=== PATIENT | male | born 1950 | race Caucasian/White ===

== ENCOUNTER 2018-06-14 09:46 | Day surgery (SDC) | payer OTHER, SELFPAY ==
[2018-06-14 10:15] VITALS: BP 137/79; PULSE 50; RESP 16; TEMP 36.3; O2SAT 100; BMI 23.3
[2018-06-14] MEDS: SODIUM CHLORIDE 0.9% 1,000 ML 200 ML IV (10:55)
[2018-06-14] MEDS: fentaNYL 250 MCG/5 ML INJ IV (11:08)
[2018-06-14] MEDS: MIDAZOLAM 5 MG/5 ML VIAL IV (11:09)
--- NOTE | 2018-06-14 11:15 | PM.HP.1 ---
History of Present Illness Date Patient Seen: 06/14/18 Time Patient Seen: 11:16 Chief complaint: [address] SCREENING COLONOSCOPY Narrative: Pleasant and healthy 67-year-old gentleman here for screening colonoscopy. He denies any problems or symptoms related to the function of his GI tract. His last colonoscopy was somewhere between 5 and 10 years ago and he recalls it has been normal. Patient History Surgical History Status post appendectomy Family & Social History Family History: Reviewed 06/14/18 by Daphney Villalobos MD Social History: household members spouse Tobacco & Substance use: Smoking Status Never smoker Meds Home Medications Medication Instructions Recorded Confirmed Type latanoprost [Xalatan] 1 drp OPHTH HS #0 05/05/11 04/19/18 History meloxicam [Mobic] 7.5 mg PO BIDP PRN #30 tab 05/15/17 04/19/18 Rx diclofenac sodium 75 mg PO BID #60 ect 06/20/17 04/19/18 Rx doxazosin [Cardura] 4 mg PO QDAY #180 tab 06/29/17 04/19/18 Rx clobetasol-emollient 1 juanjo TOPICAL BID #60 gm 11/24/17 04/19/18 Rx tadalafil [Cialis] 20 mg PO QDAY #30 tab 12/20/17 04/19/18 Rx zolpidem 5 mg tablet 5 mg PO HSP #30 tab 05/07/18 Rx Allergies Allergy/AdvReac Type Severity Reaction Status Date / Time No Known Drug Allergies Allergy Verified 04/19/18 13:50 Review of Systems Review of Systems All systems reviewed & are unremarkable except as noted in HPI and below Exam Vital Signs (past 8 hours): - 06/14/18 10:15 Temperature 97.3 F L Pulse Rate 50 L Respiratory Rate 16 Blood Pressure 137/79 H Pulse Oximetry 100 Oxygen Delivery Method Room Air Narrative Exam Narrative: HEENT: Normocephalic and atraumatic, pupils equal round reactive to light accommodation with anicteric sclera Lungs: Clear to auscultation bilaterally Heart: Regular rate and rhythm without murmur rub or gallop Abdomen: Soft, nontender, active bowel sounds Extremities: Warm and well-perfused without edema Assessment & Plan Plan: Assessment/Plan Narrative: Screening colonoscopy in the setting where pleasant and healthy gentleman. We discussed the risks and benefits of the procedure the patient expressed a desire to complete it today
[2018-06-14 11:18] VITALS: BP 96/62; PULSE 55; RESP 10; TEMP 36.8; O2SAT 95
--- NOTE | 2018-06-14 11:20 | PM.OP.1 ---
Operative Date/Time/Diagnoses Date of procedure: 06/14/18 Time of procedure: 11:20 Pre-op diagnosis: Screening Post-op diagnosis: same Procedure & Clinicians Procedure: Colonoscopy to the cecum Same procedure as scheduled: Yes Indications: Last colonoscopy 5-10 years ago Surgeon: Daphney Villalobos Click Yes if Unassisted: Yes Anesthesia Type: Sedation (Versed 8 mg; fentanyl 200 mcg) Operative Notes Findings: 1. Excellent prep 2. No polyps or mass lesions or AV malformations 3. Significant diverticulosis limited the sigmoid colon. Primarily large pockets with out evidence of false passages 4. Grade 1 internal hemorrhoids 5. Essentially normal colonoscopy for age Procedure in detail: After obtaining informed consent, the patient was brought to the GI suite and placed in the left lateral decubitus position on the examination table. After placement of appropriate monitors, the patient was given incremental doses of Versed and Fentanyl until an appropriate level of sedation was achieved. A time out was held per SCOAP protocol. A digital rectal examination was performed and did not reveal any masses or obstructing lesions. The colonoscope was gently passed into the patient's anus and the entire colon navigated to the level of the cecum with minimal difficulty. Once in the cecum, the scope was withdrawn being sure to go before and beyond all mucosal folds and prominences and get an excellent examination. The findings are noted above. At the level of the rectal vault, the scope was retroflexed and the internal anal canal was examined. The scope was straightened and air aspirated from the colon. The instrument was removed from the patient's body and the procedure was concluded. The patient was allowed to awaken from sedation without difficulty and taken to the post-anesthesia care unit in good condition. Total sedation time 23 min Total withdrawal time 11 min Complications: none Condition: stable Disposition: PACU Plan for aftercare: 1. Discharge to home 2. Plan for next colonoscopy in 10 years or as clinically indicated
[2018-06-14 11:23] VITALS: BP 102/70; PULSE 69; RESP 16; O2SAT 94
[2018-06-14 11:30] VITALS: BP 116/68; PULSE 57; RESP 16; TEMP 37.2; O2SAT 98
== END 2018-06-14 12:00 | disposition home or self-care (01) ==
PROVIDERS: PCP Family Medicine; Visit Provider Surgery
PROC: 0DJD8ZZ Inspection of Lower Intestinal Tract, Via Natural or Artificial Opening Endoscopic (ICD-10-PCS; CPT 45378; principal; 2018-06-14 10:45)
DX: Z12.11 Encounter for screening for malignant neoplasm of colon (principal); K57.30 Diverticulosis of large intestine without perforation or abscess without bleeding; K64.0 First degree hemorrhoids
CPT/HCPCS: G0121; 99152; 99153; J2250; J3010

== ENCOUNTER → 2018-11-08 08:09 | Outpatient (CLI) | payer OTHER, SELFPAY ==
[2018-11-08 10:11] LABS: Add Manual Diff / Slide Review NO; Basophils Absolute Auto 0 /uL (0-100); Basophils Percent Auto 0.4 % (0-2); Eosinophils Absolute Auto 0 /uL (0-450); Eosinophils Percent Auto 0.8 % (2-4); Hematocrit 38.6 % (41-53); Hemoglobin 12.9 g/dL (13.5-17.5); Lymphocytes Absolute Auto 1700 /uL (1100-4500); Lymphocytes Percent Auto 29.2 % (25-40); Mean Corpuscular HGB Conc 33.5 % (30-36); Mean Corpuscular Hemoglobin 32.7 PG (26-34); Mean Corpuscular Volume 97.6 fL (80-100); Monocytes Absolute Auto 500 /uL (0-900); Monocytes Percent Auto 9.3 % (3-14); Neutrophils Absolute Auto 3400 /uL (1500-7000); Neutrophils Percent Auto 60.3 % (50-75); Platelet Count 300 X10^3/uL (150-400); Red Blood Cell Count 3.95 X10^6/uL (4.5-5.9); Red Cell Distribution Width 13.6 % (11.6-14.8); White Blood Cell Count 5.7 X10^3/uL (4.5-11.0)
[2018-11-08 10:23] LABS: Alanine Aminotransferase 34 IU/L (21-72); Albumin 4.1 g/dL (3.5-5.0); Albumin Globulin Ratio 1.6 (1.0-2.8); Alkaline Phosphatase 45 U/L (38-126); Aspartate Aminotransferase 26 IU/L (17-59); BUN Creatinine Ratio 23.8 (6-22); Bilirubin Total 0.7 mg/dL (0.2-1.3); Blood Urea Nitrogen 19 mg/dL (9-20); Calcium 9.1 mg/dL (8.4-10.2); Carbon Dioxide 27 mmol/L (22-32); Chloride 104 mmol/L (98-107); Cholesterol 161 mg/dL (140-199); Estimated Glomerular Filt Rate > 60.0 mL/min (>60); Globulin 2.6 g/dL (1.7-4.1); Glucose 95 mg/dL (80-110); HDL Cholesterol 61 mg/dL (40-60); HEMOLYSIS < 15 (0-50); LDL Cholesterol Calculated 82 mg/dL (<100); Potassium 4.4 mmol/L (3.4-5.1); Sodium 139 mmol/L (137-145); Total Protein 6.7 g/dL (6.3-8.2); Triglycerides 91 mg/dL (35-150)
[2018-11-08 10:53] LABS: TSH w/ Reflex to FT4 2.04 uIU/mL (0.47-4.68)
== END ==
PROVIDERS: PCP Family Medicine; Visit Provider Family Medicine
DX: I10 Essential (primary) hypertension (principal); Z13.220 Encounter for screening for lipoid disorders; Z12.5 Encounter for screening for malignant neoplasm of prostate
CPT/HCPCS: 36415; 80053; 80061; 84153; 84443; 85025

== ENCOUNTER 2019-01-23 07:53 | Day surgery (SDC) | payer OTHER, SELFPAY ==
--- NOTE | 2019-01-19 09:51 | PM.PREOP ---
Pre-operative Note Interval Note History & Physical reviewed/Exam performed by Physician: Yes Changes to H&P: No
--- NOTE | 2019-01-19 10:10 | P.OP_ITS ---
Procedure & Clinicians Procedure: Preoperative diagnoses: 1. Complex surgery with use of capsular dye and Malyguin ring. 2. Nuclear sclerotic and cortical cataract with poor visibility of the anterior capsule increasing surgical risks of complications. 3. 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 4. 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 5. Glaucoma requiring 2 medications to stabilize. Posoperative diagnoses: 1. Complex surgery with use of capsular dye and placement of a posterior chamber intraocular lens implant. Surgeon: Lauren Pride MD Complications: none Specimen: None Implant: +ZCBOO+24.5, myopic target -2.25 Blood loss: None Anesthesia: Retrobulbar with monitored standby. Description of procedure: Dictated by: Lauren Pride MD Copy to: [facility] Post operative diagnoses: 1. Cataract removed with use of capsular dye ,Malyguin ring with placement of a posterior chamber intraocular lens. Procedure: Phacoemulsification with posterior chamber intraocular lens implant Surgeon: Lauren Pride MD Blood loss: None Anesthesia: Retrobulbar with monitored standby Description of procedure: Patient has presented with decreased vision due to cataract which is affecting activities of daily living. The patient wants surgery to improve vision. The patient was taken to the operating room and given IV sedation. A retrobulbar block consisting of 6 cc of 2% xylocaine without epinephrine mixed half and half with 0.5% Marcaine with 1 cc of hyaluronidase added is placed between the medial and lateral 1/3 of the inferior orbital rim. Lid akinesia is obtain with 1% xylocaine with epinephrine infiltrated along the lid margin. The eye is manually massaged for 30 sec, prepped using Betadine solution, and draped in the usual sterile fashion. Temporal approach was made, a 1 mm side-port incision was performed 90 degrees from the planned corneal wound. Phenylephrine 1.5% mixed with 1% xylocaine 0.2 cc was placed into the anterior chamber. An air bubble was placed and Visudyne dye was placed to improve visibility of the anterior capsule. The dye was irrigated out to reduce bubbles. Viscoat followed by Healon was then placed. A 2.6 mm clear incision with a 2.6 mm blade was placed. due to a poorly dilating pupil with use of sympathomemetics a 7.0 mm Malyguin ring is inspected, placed in a folder, and opened into the anterior chamber. It is then sequentiaally hooked on all 4 quadrants of the iris A 360 degree capsulorrhexis style capsulotomy was then performed with a cystitome needle on a STAT-Diagnosticaon. Hydrodelineation and hydrodissection were performed. The phacoemulsification unit is introduced, and sculpting used to groove the central lens. The capsule is floppy but the zonules remained intact.It is then removed in chopping mode. Epi nucleus is removed with epinuclear mode and irrigation aspiration was used to remove the peripheral cortex. The posterior capsule is polished. The intraocular lens is selected, inspected, power confirmed, and placed in the posterior chamber. Viscoelastic is placed and the iris ring was disinserted from every quadrant and removed from the eye in total. The pupil was constricted with Miostat. The wound was stromally hydrated and tested for leaks, there was none and was left sutureless. Vigamox 0.1 cc was placed into the anterior chamber. Kenalog 0.2 cc was placed in the superior subconjunctival space. A drop of antibiotic and was placed and the eye was patched and shielded. The patient was stable and returned to the recovery room in excellent condition. Dictated by: Lauren Pride MD Copy to: [facility]
[2019-01-23] MEDS: PROPARACAINE 0.5% OPHTH SOL 2 DROPS EYE-OP (08:24)
[2019-01-23 08:25] VITALS: BP 168/79; PULSE 59; RESP 15; TEMP 36.4
[2019-01-23 08:26] VITALS: BMI 22.6
[2019-01-23] MEDS: CATARACT EYE COMPOUND (10 DROPS/SYRINGE) 3 DROPS EYE-OP (08:31)
--- NOTE | 2019-01-23 09:10 | SUR.OPER ---
Supine on eye stretcher, head on extension cradle secured with tape. Arms tucked at sides with blanket. Pillow under knees.
[2019-01-23] MEDS: MOXIFLOXACIN OPHTH DROPS 3 ML BOTTLE 2 DROPS INJ ×2 (09:19)
[2019-01-23] MEDS: TRIAMCINOLONE 50 MG/5 ML VIAL INJ (09:20)
[2019-01-23] MEDS: CHONDROIDTIN/SOD HYALURONATE 1.05 ML SYRINGE INTRAOCULA (09:20)
[2019-01-23] MEDS: CARBACHOL 1.5 ML VIAL INJ (09:21)
[2019-01-23] MEDS: BALANCED SALT IRRIG SOLN NO.2 15 ML IRR (09:21)
[2019-01-23] MEDS: HYALURONATE SODIUM 10 MG/ML SYRINGE INJ (09:21)
[2019-01-23] MEDS: TRYPAN BLUE 0.5 ML SYRINGE INJ (09:22)
[2019-01-23] MEDS: NEOMYCIN/POLY/DEX OPHTH OINT 1 APPLIC EYE-RIGHT (09:22)
[2019-01-23] MEDS: BALANCED SALT IRRIG SOLN NO.2 500 ML, EPINEPHrine 1 MG IRR (09:23)
[2019-01-23] MEDS: OFLOXACIN 0.3% OPHTH 5 ML 2 DROPS EYE-RIGHT (09:23)
[2019-01-23] MEDS: LIDOCAINE 1% W/EPI INJ 20 ML INJ (09:24)
[2019-01-23] MEDS: LIDOCAINE 2% 4 ML, BUPIVACAINE 0.5% (PF) 4 ML, HYALURONIDASE 150 UNIT INJ (09:25)
[2019-01-23 10:03] VITALS: BP 172/86; PULSE 58; RESP 15; TEMP 36.4; O2SAT 95
[2019-01-23 10:12] VITALS: BP 175/88; PULSE 51; RESP 16; TEMP 37; O2SAT 100
== END 2019-01-23 10:17 | disposition home or self-care (01) ==
LOC: OR 07:54
PROVIDERS: PCP Family Medicine; Visit Provider Ophthalmology
PROC: (CPT 66982; principal; 2019-01-23 08:45)
DX: H25.811 Combined forms of age-related cataract, right eye (principal); H21.81 Floppy iris syndrome; H21.509 Unspecified adhesions of iris and ciliary body, unspecified eye; H40.9 Unspecified glaucoma
CPT/HCPCS: 66982; J0171; J2704; J3301; J3470

== ENCOUNTER 2019-02-06 06:57 | Day surgery (SDC) | payer OTHER, SELFPAY ==
--- NOTE | 2019-02-02 12:04 | PM.PREOP ---
Pre-operative Note Interval Note History & Physical reviewed/Exam performed by Physician: Yes Changes to H&P: No
--- NOTE | 2019-02-02 12:04 | PM.OP.1 ---
Operative Date/Time/Diagnoses Date of procedure: 02/06/19 Time of procedure: 07:45 Procedure & Clinicians Procedure: Preoperative diagnoses: 1. Cataract surgery with use of posterior chamber IOL. 2. Nuclear sclerotic and cortical cataract.. 3. Floppy iris syndome on sympathomemetics. 4. Glaucoma with narrow angle anatomy. 5. Superior corneal scar. Post operative diagnoses: 1. Cataract surgery with placement of a posterior chamber intraocular lens implant. Surgeon: Lauren Pride MD Complications: none Specimen: None Implant: ZCBOO+23.5 Blood loss: None Anesthesia: Retrobulbar with monitored standby. Description of procedure: Dictated by: Lauren Pride MD Copy to: [facility] Post operative diagnoses: 1. Cataract removed with with placement of a posterior chamber intraocular lens. Procedure: Phacoemulsification with posterior chamber intraocular lens implant. Surgeon: Lauren Pride MD Blood loss: None Anesthesia: Retrobulbar with monitored standby. Description of procedure: Patient has presented with decreased vision due to cataract which is affecting activities of daily living. The patient wants surgery to improve vision. The patient was taken to the operating room and given IV sedation. A retrobulbar block consisting of 6 cc of 2% xylocaine without epinephrine mixed half and half with 0.5% Marcaine with 1 cc of hyaluronidase added is placed between the medial and lateral 1/3 of the inferior orbital rim. Lid akinesia is obtain with 1% xylocaine with epinephrine infiltrated along the lid margin. The eye is manually massaged for 30 sec, prepped using Betadine solution, and draped in the usual sterile fashion. Temporal approach was made, a 1 mm side-port incision was performed 90 degrees from the planned corneal wound. Phenylephrine 1.5% mixed with 1% xylocaine 0.2 cc was placed into the anterior chamber. I determined there was adequate visibility and pupillary dilation and did not use capsular dye or a Malyugin ring. Visscoat followed by Tiki was then placed. A 2.6 mm clear incision with a 2.6 mm blade was placed. A Malyugin ring of 7.0 mm was inspected and placed into an unfolded. It was then opened into the anterior chamber and sequentially hooked on every quadrant of the iri allowing for a stable iris for surgery. A 360 degree capsulorrhexis style capsulotomy was then performed with a cystitome needle on a Healon aided by the capsular dye. Hydrodelineation and hydrodissection were performed. The phacoemulsification unit is introduced, and sculpting used to groove the central lens. It is then removed in chopping mode. Epi nucleus is removed with epinuclear mode and irrigation aspiration was used to remove the peripheral cortex. The posterior capsule is polished. The intraocular lens is selected, inspected, power confirmed, and placed in the posterior chamber. The pupil was constricted with Miostat. The wound was stromally hydrated and tested for leaks, there was none and was left sutureless. Vigamox 0.1 cc was placed into the anterior chamber. Kenalog 0.2 cc was placed in the superior subconjunctival space. A drop of antibiotic and was placed and the eye was patched and shielded. The patient was stable and returned to the recovery room in excellent condition. There were no complications and the iris did not flop. There was a corneal scar but it did not impair the surgery. Dictated by: Lauren Pride MD Copy to: [facility]
[2019-02-06 07:07] VITALS: BMI 22.7
[2019-02-06] MEDS: PROPARACAINE 0.5% OPHTH SOL 2 DROPS EYE-OP (07:10)
[2019-02-06] MEDS: CATARACT EYE COMPOUND (10 DROPS/SYRINGE) 3 DROPS EYE-OP ×2 (07:11→07:15)
[2019-02-06 07:13] VITALS: BP 144/83; PULSE 51; RESP 15; TEMP 36.8; O2SAT 99
[2019-02-06] MEDS: CARBACHOL 1.5 ML VIAL INJ (08:07)
[2019-02-06] MEDS: CHONDROIDTIN/SOD HYALURONATE 1.05 ML SYRINGE INTRAOCULA (08:07)
[2019-02-06] MEDS: HYALURONATE SODIUM 10 MG/ML SYRINGE INJ (08:07)
[2019-02-06] MEDS: BALANCED SALT IRRIG SOLN NO.2 15 ML IRR (08:07)
[2019-02-06] MEDS: LIDOCAINE 1% W/EPI INJ 20 ML INJ (08:08)
[2019-02-06] MEDS: MOXIFLOXACIN OPHTH DROPS 3 ML BOTTLE 2 DROPS INJ (08:09)
[2019-02-06] MEDS: OFLOXACIN 0.3% OPHTH 5 ML 2 DROPS EYE-LEFT (08:09)
[2019-02-06] MEDS: NEOMYCIN/POLY/DEX OPHTH OINT 1 APPLIC EYE-LEFT (08:09)
[2019-02-06] MEDS: PHENYLEPHRINE/LIDOCAINE VIAL (OR) 0.2 ML EYE-OP (08:10)
[2019-02-06] MEDS: TRIAMCINOLONE 50 MG/5 ML VIAL INJ (08:10)
[2019-02-06] MEDS: LIDOCAINE 2% 4 ML, BUPIVACAINE 0.5% (PF) 4 ML, HYALURONIDASE 150 UNIT INJ (08:11)
[2019-02-06] MEDS: BALANCED SALT IRRIG SOLN NO.2 500 ML, EPINEPHrine 1 MG IRR (08:11)
[2019-02-06 08:47] VITALS: BP 144/83; PULSE 51; RESP 15; TEMP 37; O2SAT 99
--- NOTE | 2019-02-06 08:58 | SUR.PHASEII ---
LEFT PERIPHERAL IV D/C'D, CATHETER INTACT. PT TOLERATING COFFEE, DENIES ANY PAIN OR NAUSEA.
== END 2019-02-06 09:01 | disposition home or self-care (01) ==
LOC: OR 06:58
PROVIDERS: PCP Family Medicine; Visit Provider Ophthalmology
PROC: (CPT 66982; principal; 2019-02-06 07:45)
DX: H25.812 Combined forms of age-related cataract, left eye (principal); H21.81 Floppy iris syndrome; H40.20X0 Unspecified primary angle-closure glaucoma, stage unspecified
CPT/HCPCS: 66982; J0171; J2250; J2704; J3010; J3301; J3470

== ENCOUNTER → 2021-02-23 10:30 | Outpatient (CLI) | payer MEDICARE, SELFPAY ==
[2021-02-23 11:05] LABS: Add Manual Diff / Slide Review NO; Basophils Absolute Auto 0 /uL (0-100); Basophils Percent Auto 0.6 % (0-2); Eosinophils Absolute Auto 0 /uL (0-450); Eosinophils Percent Auto 0.7 % (2-4); Hematocrit 40.2 % (41-53); Hemoglobin 13.5 g/dL (13.5-17.5); Lymphocytes Absolute Auto 1700 /uL (1100-4500); Lymphocytes Percent Auto 24.9 % (25-40); Mean Corpuscular HGB Conc 33.5 % (30-36); Mean Corpuscular Hemoglobin 32.8 PG (26-34); Monocytes Absolute Auto 600 /uL (0-900); Neutrophils Absolute Auto 4500 /uL (1500-7000); Neutrophils Percent Auto 64.8 % (50-75); Platelet Count 287 X10^3/uL (150-400); White Blood Cell Count 6.9 X10^3/uL (4.5-11.0)
[2021-02-23 11:22] LABS: Alanine Aminotransferase 22 IU/L (<50); Albumin Globulin Ratio 1.4 (1.0-2.8); Alkaline Phosphatase 54 U/L (38-126); Aspartate Aminotransferase 36 IU/L (17-59); Bilirubin Total 0.5 mg/dL (0.2-1.3); Blood Urea Nitrogen 15 mg/dL (9-20); Calcium 9.4 mg/dL (8.4-10.2); Carbon Dioxide 25 mmol/L (22-32); Chloride 107 mmol/L (98-107); Cholesterol 169 mg/dL (140-199); Estimated Glomerular Filt Rate > 60.0 mL/min (>60); Globulin 2.9 g/dL (1.7-4.1); Glucose 98 mg/dL (80-110); HDL Cholesterol 72 mg/dL (40-60); HEMOLYSIS < 15 (0-50); LDL Cholesterol Calculated 81 mg/dL (<100); Potassium 3.8 mmol/L (3.4-5.1); Sodium 139 mmol/L (137-145); Total Protein 6.9 g/dL (6.3-8.2); Triglycerides 81 mg/dL (35-150)
[2021-02-23 11:52] LABS: Prostate Specific Antigen 3.31 ng/mL (0.10-4.00)
== END ==
PROVIDERS: PCP Family Medicine; Referring Provider Family Medicine; Visit Provider Family Medicine
DX: E78.5 Hyperlipidemia, unspecified (principal); N40.0 Benign prostatic hyperplasia without lower urinary tract symptoms
CPT/HCPCS: 36415; 80053; 80061; 84153; 85025

== ENCOUNTER → 2022-12-05 12:00 | Outpatient (CLI) | payer MEDICARE, SELFPAY ==
[2022-12-05 13:24] LABS: Add Manual Diff / Slide Review NO; Basophils Absolute Auto 0 /uL (0-100); Basophils Percent Auto 0.5 % (0-2); Eosinophils Absolute Auto 0 /uL (0-450); Eosinophils Percent Auto 0.6 % (2-4); Hematocrit 39.3 % (41-53); Hemoglobin 13.2 g/dL (13.5-17.5); Lymphocytes Absolute Auto 1900 /uL (1100-4500); Mean Corpuscular HGB Conc 33.5 % (30-36); Mean Corpuscular Hemoglobin 32.5 PG (26-34); Monocytes Absolute Auto 700 /uL (0-900); Monocytes Percent Auto 9.1 % (3-14); Neutrophils Absolute Auto 4900 /uL (1500-7000); Neutrophils Percent Auto 64.8 % (50-75); Platelet Count 330 X10^3/uL (150-400); Red Blood Cell Count 4.06 X10^6/uL (4.5-5.9); Red Cell Distribution Width 14.1 % (11.6-14.8); White Blood Cell Count 7.5 X10^3/uL (4.5-11.0)
[2022-12-05 13:37] LABS: Alanine Aminotransferase 27 IU/L (<50); Albumin 4.2 g/dL (3.5-5.0); Albumin Globulin Ratio 1.4 (1.0-2.8); Alkaline Phosphatase 51 U/L (38-126); Aspartate Aminotransferase 30 IU/L (17-59); BUN Creatinine Ratio 22.7 (6-22); Bilirubin Total 0.6 mg/dL (0.2-1.3); Blood Urea Nitrogen 17 mg/dL (9-20); Calcium 8.8 mg/dL (8.4-10.2); Carbon Dioxide 27 mmol/L (22-32); Chloride 103 mmol/L (98-107); Cholesterol 162 mg/dL (140-199); Estimated Glomerular Filt Rate > 60 mL/min (>60); Glucose 87 mg/dL (80-110); HDL Cholesterol 63 mg/dL (40-60); HEMOLYSIS < 15 (0-50); LDL Cholesterol Calculated 79 mg/dL (<100); Potassium 4.1 mmol/L (3.4-5.1); Sodium 139 mmol/L (137-145); Total Protein 7.2 g/dL (6.3-8.2); Triglycerides 98 mg/dL (35-150)
[2022-12-05 14:27] LABS: TSH w/ Reflex to FT4 0.67 uIU/mL (0.47-4.68)
== END ==
PROVIDERS: PCP Family Medicine; Referring Provider Family Medicine; Visit Provider Family Medicine
DX: E78.5 Hyperlipidemia, unspecified (principal); N40.0 Benign prostatic hyperplasia without lower urinary tract symptoms
CPT/HCPCS: 36415; 80053; 80061; 84443; 85025

== ENCOUNTER → 2023-11-13 16:30 | Outpatient (CLI) | payer OTHER, SELFPAY ==
[2023-11-13 17:11] LABS: Add Manual Diff / Slide Review NO; Basophils Absolute Auto 0 /uL (0-100); Basophils Percent Auto 0.5 % (0-2); Eosinophils Absolute Auto 0 /uL (0-450); Eosinophils Percent Auto 0.6 % (2-4); Hematocrit 39.8 % (41-53); Hemoglobin 13.4 g/dL (13.5-17.5); Lymphocytes Absolute Auto 1700 /uL (1100-4500); Mean Corpuscular HGB Conc 33.7 % (30-36); Mean Corpuscular Hemoglobin 32.9 PG (26-34); Mean Corpuscular Volume 97.5 fL (80-100); Monocytes Absolute Auto 600 /uL (0-900); Monocytes Percent Auto 10.2 % (3-14); Neutrophils Absolute Auto 3800 /uL (1500-7000); Neutrophils Percent Auto 61.7 % (50-75); Platelet Count 290 X10^3/uL (150-400); Red Blood Cell Count 4.08 X10^6/uL (4.5-5.9); Red Cell Distribution Width 13.5 % (11.6-14.8); White Blood Cell Count 6.2 X10^3/uL (4.5-11.0)
[2023-11-13 18:02] LABS: Alanine Aminotransferase 23 IU/L (<50); Albumin Globulin Ratio 1.3 (1.0-2.8); Alkaline Phosphatase 41 U/L (38-126); Aspartate Aminotransferase 30 IU/L (17-59); BUN Creatinine Ratio 21.1 (6-22); Bilirubin Total 0.5 mg/dL (0.2-1.3); Blood Urea Nitrogen 16 mg/dL (9-20); Calcium 9.2 mg/dL (8.4-10.2); Carbon Dioxide 30 mmol/L (22-32); Chloride 101 mmol/L (98-107); Cholesterol 158 mg/dL (140-199); Estimated Glomerular Filt Rate > 60 mL/min (>60); Glucose 83 mg/dL (80-110); HDL Cholesterol 67 mg/dL (40-60); HEMOLYSIS < 15 (0-50); LDL Cholesterol Calculated 70 mg/dL (<100); Potassium 3.8 mmol/L (3.4-5.1); Sodium 136 mmol/L (137-145); Triglycerides 105 mg/dL (35-150)
[2023-11-13 18:28] LABS: Thyroid Stimulating Hormone 0.765 uIU/mL (0.47-4.68)
== END ==
PROVIDERS: PCP Family Medicine; Referring Provider Family Medicine; Visit Provider Family Medicine
DX: E78.5 Hyperlipidemia, unspecified (principal); N40.0 Benign prostatic hyperplasia without lower urinary tract symptoms
CPT/HCPCS: 36415; 80053; 80061; 84443; 85025

== ENCOUNTER → 2023-11-15 15:15 | Outpatient (CLI) | payer OTHER, SELFPAY ==
[2023-11-15 15:35] LABS: HEMOLYSIS < 15 (0-50); Iron 114 ug/dL (49-181)
[2023-11-15 15:46] LABS: Percent Iron Saturation 32 % (20-50); Total Iron Binding Capacity 354 ug/dL (261-462); Transferrin 304 mg/dL (206-381)
[2023-11-15 16:11] LABS: Ferritin 25 ng/mL (18-464)
== END ==
PROVIDERS: PCP Family Medicine; Visit Provider Family Medicine
DX: D64.9 Anemia, unspecified (principal)
CPT/HCPCS: 82728; 83540; 83550

== ENCOUNTER → 2025-01-06 12:24 | Outpatient (CLI) | payer MEDICARE, SELFPAY ==
[2025-01-06 13:29] LABS: Add Manual Diff / Slide Review NO; Basophils Absolute Auto 0 /uL (0-100); Basophils Percent Auto 0.3 % (0-2); Eosinophils Absolute Auto 0 /uL (0-450); Eosinophils Percent Auto 0.4 % (2-4); Hematocrit 40.4 % (41-53); Hemoglobin 13.6 g/dL (13.5-17.5); Lymphocytes Absolute Auto 1900 /uL (1100-4500); Lymphocytes Percent Auto 28.3 % (25-40); Mean Corpuscular HGB Conc 33.6 % (30-36); Mean Corpuscular Volume 98.2 fL (80-100); Monocytes Absolute Auto 500 /uL (0-900); Monocytes Percent Auto 7.5 % (3-14); Neutrophils Absolute Auto 4300 /uL (1500-7000); Neutrophils Percent Auto 63.5 % (50-75); Platelet Count 283 X10^3/uL (150-400); Red Blood Cell Count 4.12 X10^6/uL (4.5-5.9); Red Cell Distribution Width 13.5 % (11.6-14.8); White Blood Cell Count 6.7 X10^3/uL (4.5-11.0)
[2025-01-06 13:53] LABS: Alanine Aminotransferase 28 IU/L (<50); Albumin 4.3 g/dL (3.5-5.0); Albumin Globulin Ratio 1.7 (1.0-2.8); Alkaline Phosphatase 50 U/L (38-126); Aspartate Aminotransferase 33 IU/L (17-59); BUN Creatinine Ratio 23.3 (6-22); Bilirubin Total 0.5 mg/dL (0.2-1.3); Blood Urea Nitrogen 21 mg/dL (9-20); Calcium 9.3 mg/dL (8.4-10.2); Carbon Dioxide 25 mmol/L (22-32); Chloride 102 mmol/L (98-107); Cholesterol 177 mg/dL (140-199); Estimated Glomerular Filt Rate > 60 mL/min (>60); Globulin 2.6 g/dL (1.7-4.1); Glucose 89 mg/dL (80-110); HDL Cholesterol 69 mg/dL (40-60); HEMOLYSIS < 15 (0-50); LDL Cholesterol Calculated 80 mg/dL (<100); Potassium 4.2 mmol/L (3.4-5.1); Sodium 136 mmol/L (137-145); Total Protein 6.9 g/dL (6.3-8.2); Triglycerides 139 mg/dL (35-150)
[2025-01-06 14:22] LABS: Prostate Specific Antigen Scrn 0.352 ng/mL (0.1-4.0)
== END ==
PROVIDERS: PCP Family Medicine; Referring Provider Family Medicine; Visit Provider Family Medicine
DX: E78.2 Mixed hyperlipidemia (principal); Z12.5 Encounter for screening for malignant neoplasm of prostate; N40.0 Benign prostatic hyperplasia without lower urinary tract symptoms
CPT/HCPCS: 36415; 80053; 80061; 85025; G0103

== ENCOUNTER 2025-07-11 06:26 | Day surgery (SDC) | payer MEDICARE, SELFPAY ==
[2025-07-07 10:13] VITALS: BMI 22.4
[2025-07-11] VITALS (8 sets, daily range): BP systolic 111–156; BP diastolic 61–83; PULSE 59–77; RESP 15–16; TEMP 36.2–36.8; O2SAT 95–100; BMI 21.6
--- NOTE | 2025-07-11 06:48 | PM.HP.IH.1 ---
History of Present Illness History of Present Illness Date Patient Seen: 07/11/25 Time Patient Seen: 06:48 Chief complaint: Lap R inguinal hernia repair w/mesh Narrative: Patient presents for [facility] this morning. [facility] Medical History (Updated 07/07/25 @ 10:20 by Agnes Pride, RN) Hyperlipidemia Colon polyps Diverticulosis of colon (06/14/18) Hemorrhoids, internal Chicken pox (~1957) Herpes (~1984) Mumps (~1957) Acne (1964) Eczema Hayfever (1989) BPH (benign prostatic hyperplasia) Glaucoma Surgical History (Updated 07/07/25 @ 10:20 by Agnes Pride RN) S/P TURP Hx of bilateral cataract extraction (2018) History of colonoscopy (12/17/07) Anesthesia History of ankle surgery (1956) History of colonoscopy (06/14/18) Status post appendectomy (1965) Family History Father Heart disease Hyperlipidemia Smoker Mother Heart disease Brain aneurysm Grandfather Heart failure Social History (Updated 05/12/25 @ 15:08 by Inna Canchola MA) marital status: household members: spouse occupational status: employed Smoking Status: Never smoker alcohol intake: current substance use type: does not use Meds Home Medications and Allergies Home Medications ?Medication ?Instructions ?Recorded ?Confirmed ?Type latanoprost 0.005 % eye drops 1 drp OPHTH HS ##0 05/05/11 05/12/25 History (Xalatan) clobetasol-emollient 0.05 % 1 applic topical BID PRN herpes 12/26/23 05/12/25 Rx topical cream #60 grams tadalafil 20 mg tablet (Cialis) 20 mg PO QDAY #90 tabs 01/13/25 05/12/25 Rx acyclovir 400 mg tablet 400 mg PO TID #90 tabs 04/21/25 05/12/25 Rx diclofenac sodium 75 mg 75 mg PO DAILY #90 tabs 04/21/25 05/12/25 Rx tablet,delayed release zolpidem 10 mg tablet 5 mg (1/2 x 10 mg) PO BEDTIME PRN 04/22/25 05/12/25 Rx insomnia #30 tabs Allergies Allergy/AdvReac Type Severity Reaction Status Date / Time No Known Drug Allergies Allergy Verified 05/12/25 15:02 Exam Narrative Exam Narrative: Const General: healthy appearing, comfortable and no acute distress Orientation: alert and oriented x3 HENMT Head: normal to inspection Ears: hearing grossly normal bilaterally Eyes Visual Tobias: normal visual tobias by confrontation Conjunctivae: conjunctivae normal Sclera: sclerae normal EOM: EOM intact bilaterally Neck Neck: normal visual inspection Resp Effort & Inspection: normal respiratory effort and able to speak in complete sentences Auscultation: clear to auscultation bilaterally Cardio Rate: regular rate GI Palpation: soft (nontender) Other: RIH on exam, reducible. LT side has slight weakness. Extrem Other: without pitting edema Assessment & Plan Assessment and plan (1) Right inguinal hernia: Status: Acute Plan Laparoscopic RT inguinal hernia repair using no-tack mesh technique (TEP). The risks, benefits and options regarding the procedure were explained to the patient in detail. Risk discussion included but not limited to: bleeding, infection, pain, recurrent hernia, urinary retention. The patient was encouraged to ask questions and they were answered to their satisfaction. The patient understands and is agreeable to proceed. Time-Based Coding :: [TOTAL MINUTES] spent with patient and on the chart (including review of chart, obtaining history, exam, reviewing outside data, placing orders, documenting exam and treatment plan, and counseling patient) on [DATE]. PROFEE Critical Care Educator Document charge(s): Yes Charge Codes Inpatient/observation care including admit and discharge same day: [id number]
[2025-07-11] MEDS: LACTATED RINGERS 1,000 ML 42 ML IV (06:58)
[2025-07-11] MEDS: FAMOTIDINE 20 MG/2 ML VIAL IV (07:19)
--- NOTE | 2025-07-11 08:00 | SUR.OPER ---
Supine on pink padded OR bed, head on pillow, arms padded and tucked at sides, legs uncrossed, purple safety strap across chest, safety belt at thigh, tape over blanket over lower legs. IV site and ports padded and protected. Final position verified by surgeon.
--- NOTE | 2025-07-11 08:54 | PM.OP.1 ---
Operative Date/Time/Diagnoses Date of procedure: 07/11/25 Time of procedure: 08:54 Pre-op diagnosis: Right inguinal hernia Post-op diagnosis: same (Direct right inguinal hernia) Procedure & Clinicians Procedure: Laparoscopic right inguinal hernia repair with mesh (TEP) Same procedure(s) as scheduled: Yes Indications: 74yo M with symptomatic right inguinal hernia. Surgeon: Errol Donnelly Assisted?: No Anesthesia Type: General Operative Notes Findings: Direct right inguinal hernia Specimen(s): none sent Applied: none Estimated Blood Loss (mL): 10 Blood products transfused: none Procedure in detail: After informed consent and satisfactory general endotracheal anesthesia, the groins were shaved, prepped and draped in the usual sterile manner. The patient received appropriate preoperative antibiotics and DVT prophylaxis. Surgical time-out was performed with all team members in agreement. The correct side was marked in the preoperative holding area. The preperitoneal space was entered via an infraumbilical incision. An 0 Vicryl [id number] suture was placed on the anterior rectus sheath to the right lateral of midline. The rectus muscle was retracted laterally and the preperitoneal space was dissected with a blunt 10 mm instrument. The 10 mm trocar was inserted and the preperitoneal space was insufflated to a pressure of 12 mmHg with carbon dioxide gas. This allowed direct visual placement of two 5 mm trocars in the suprapubic midline. The patient was placed in Trendelenburg position. We further dissected the preperitoneal space including the femoral, direct and indirect spaces. We dissected out lateral and an ilioinguinal nerve block was performed under direct vision by injecting 10 cc of 0.5% Marcaine with epinephrine into the transversus muscle under direct vision 2 fingerbreadths medial to the anterior superior iliac spine. A total of 30 cc of 0.5% Marcaine with epinephrine was used. The remainder was injected into the musculature at the end of the procedure for postoperative analgesia. Once the preperitoneal space was dissected free we noticed that there was no indirect defect and no femoral defect. The peritoneum was dissected proximally off of the cord structures to allow room for the mesh. The patient was noted to have a direct hernia of moderate size. This redundant transversalis fascia was pulled through an 0 PDS endoloop, twisted and then ligated to minimize the risk for postoperative seroma formation. A Bard 3D Duramax mesh was selected and inserted into the preperitoneal space and unrolled until it was in perfect position and noted to lay in a flat position without kinking or wrinkling of the mesh. The mesh covered all 3 potential hernia defects widely. Hemostasis was excellent throughout. I held the lower border of the mesh with the grasper as we released the carbon dioxide and the peritoneum was noted to relax in a very pleasing manner against the mesh holding it in place. No tacking or fixation was required The pneumoperitoneum was released, the trocars were remove and there was no bleeding noted at the trocar sites. The 0 Vicryl [id number] suture was tied on the umbilical fascia with no palpable fascial defects. The skin incisions were closed using 4-0 Monocryl in a subcuticular manner. Dermabond glue was applied as a final dressing. The instrument, sponge and needle counts were all correct x2. The patient tolerated the procedure well and was extubated in the operating room and transported to the recovery area in stable condition. Complications: none Post-operative Condition: stable Disposition: PACU Plan for aftercare: PACU then home
== END 2025-07-11 10:32 | disposition home or self-care (01) ==
PROVIDERS: PCP Family Medicine; Referring Provider Surgery; Visit Provider Surgery
PROC: 0YQ54ZZ Repair Right Inguinal Region, Percutaneous Endoscopic Approach (ICD-10-PCS; CPT 49650; principal; 2025-07-11 07:45)
DX: K40.90 Unilateral inguinal hernia, without obstruction or gangrene, not specified as recurrent (principal); R33.9 Retention of urine, unspecified
CPT/HCPCS: 49650; 51798; 99282; C1781; J0689; J1100; J1171; J2405; J2704; J3010; J3490

== ENCOUNTER 2025-07-11 12:44 | Emergency (ER) | payer MEDICARE, SELFPAY ==
[2025-07-11 12:48] VITALS: BP 174/85; PULSE 72; RESP 16; TEMP 36.3; O2SAT 96; BMI 21.7
--- NOTE | 2025-07-11 14:02 | PC.NURSE ---
Pt reports that he has Laparoscopic RT inguinal hernia repair this morning. was able to void after surgery although small amount. reports he has not voided since and is having pressure on bladder area. Pt was bladder scanned in triage. laproscopic incision directly over bladder area. Placed call to Dr Donnelly, pt's surgeon. Advised of patients concerns. I explained that only 90ml was seen on bladder scan and Dr Donnelly agreed pt should be given more time post surgically to void. Pt had a TURP procedure last year as well. Explained to patient conversation with Dr Donnelly and in conjunction with , agreed to give it more time. Advised he is more than welcome to stay and see Dr Ch. Pt declined and stated he would rather go with the advice of his surgeon. Given strict return precautions for tonight if continuing to feel increased pressure and no voiding. Asked to please contact surgeons office tomorrow morning regardless to give them and update and consult on furthering plan of care.
== END 2025-07-11 13:51 | disposition left against medical advice (07) ==
PROVIDERS: Emergency Provider Emergency Medicine; PCP Family Medicine
DX: R33.9 Retention of urine, unspecified (principal)
CPT/HCPCS: 51798; 99282